=== PATIENT | female | born 1955 | race Caucasian/White ===

== ENCOUNTER 2018-12-01 14:19 | Outpatient (CLI) | payer BC | END 2018-12-01 14:20 | disposition home or self-care (01) | LOC: SCSMAMMO 14:19 | PROVIDERS: ATTEND Family Medicine | DX: Z12.31 Encounter for screening mammogram for malignant neoplasm of breast (principal) | CPT/HCPCS: 77067 ==

== ENCOUNTER 2023-04-16 10:33 | Outpatient (CLI) | payer OTHER | END 2023-04-16 10:34 | disposition home or self-care (01) | LOC: BICMRI 10:33 | PROVIDERS: ATTEND Family Medicine | DX: M79.671 Pain in right foot (principal); R60.0 Localized edema; M67.873 Other specified disorders of tendon, right ankle and foot ==

== ENCOUNTER 2024-07-08 12:33 | Outpatient (CLI) | payer BC | END 2024-07-08 12:34 | disposition home or self-care (01) | LOC: SCSMRI 12:33 | PROVIDERS: ATTEND Family Medicine | DX: R10.2 Pelvic and perineal pain (principal); S76.011A Strain of muscle, fascia and tendon of right hip, initial encounter; M67.853 Other specified disorders of tendon, right hip ==